=== PATIENT | male | born 2000 | race Caucasian/White ===

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

== ENCOUNTER → 2022-01-30 | Outpatient (CLI) | payer OTHER | LOC: LAB 10:24 | PROVIDERS: Internal Medicine | DX: Z94.0 Kidney transplant status (principal); Z79.899 Other long term (current) drug therapy | CPT/HCPCS: 36415; 80069; 87497 ==